=== PATIENT | female | born 1950 | race Caucasian/White ===

== ENCOUNTER → 2021-11-16 06:40 | Outpatient (CLI) | payer MEDICARE, SELFPAY ==
--- NOTE | 2021-11-16 | DI.ECHO.S_ITS ---
[facility] +---------+ : : [address] : [address] : : : : [id number] : : : : Phone: [phone]+ Echocardiogram Report + + :Name: JACE ESTRADA Study Date: 11/16/2021 Height: 65 in : :[facility] ReadingLocation: Weight: 159 lb : : Gender: Female BSA: 1.8 m2 : :: 1950 Age: 71 yrs BP: 140/88 mmHg: :Reason For Study: Hypertension : :Ordering Physician: : :Elisabeth Preciado Performed By: Junior Davis : :Referring: Elisabeth Preciado : + + Interpretation Summary The ejection fraction is estimated to be 55-60%. Diastolic parameters suggest probable normal left ventricular diastolic function and normal filling pressures. The right ventricle is normal in size and function. There is mild tricuspid regurgitation. The right ventricular systolic pressure is estimated to be at least 23 mmHg based on an estimated right atrial pressure of 3 mm Hg. Procedure: A two-dimensional transthoracic echocardiogram with color flow and Doppler was performed. The study quality was technically adequate. There is no prior echocardiogram noted for this patient. The patient was in normal sinus rhythm during the exam. Left Ventricle: The left ventricle is normal in size and wall thickness. Left ventricular systolic function is normal. The ejection fraction is estimated to be 55-60%. There are no focal wall motion abnormalities. Diastolic parameters suggest probable normal left ventricular diastolic function and normal filling pressures. Right Ventricle: The right ventricle is normal in size and function. Atria: Both atria are normal in size. The interatrial septum grossly appears intact with no obvious evidence for an atrial septal defect. Mitral Valve: The mitral valve is normal in structure and function. There is trace mitral regurgitation. Aortic Valve: The aortic valve is trileaflet. There is no aortic valve stenosis. No aortic regurgitation is present. Tricuspid Valve: The tricuspid valve is normal in structure and function. There is mild tricuspid regurgitation. The right ventricular systolic pressure is estimated to be at least 23 mmHg based on an estimated right atrial pressure of 3 mm Hg. Pulmonic Valve: The pulmonic valve is normal in structure and function. There is no pulmonic valvular regurgitation. Great Vessels: The aortic root is normal size. The dimensions of the ascending aorta are normal. The IVC is of normal diameter and collapses greater than 50% with a sniff. This suggests a low right atrial pressure of 3 mm Hg. Pericardium/ Pleura There is no pericardial effusion. There is no pleural effusion. MMode/2D Measurements & Calculations LVIDd: 4.8 cm LVOT diam: 2.0 cm LVIDs: 3.5 cm Ao root diam: 2.9 cm FS: 27.1 % asc Aorta Diam: 3.3 cm IVSd: 0.70 cm LVPWd: 0.80 cm LV monte. diameter/BSA (cm/m^2): 2.7 LV sys. diameter/BSA (cm/m^2): 2.0 LA dimension: 2.7 cm RA long axis: 4.6 cm LA A2 area: 17.3 cm2 IVC diam: 1.6 cm LA A4 area: 15.9 cm2 LA length (vol): 4.8 cm LA vol: 48.4 ml LA vol index: 27.0 ml/m2 TAPSE_phl: 1.8 cm Doppler Measurements & Calculations Ao V2 max: 128.0 cm/sec LVOT Max Stefan: 90.1 cm/sec Ao V2 mean: 97.3 cm/sec LV V1 max P.2 mmHg Ao max P.0 mmHg LV V1 VTI: 19.2 cm Ao mean P.0 mmHg CHIP(I,D): 2.1 cm2 Ao V2 VTI: 28.5 cm CHIP(V,D): 2.2 cm2 sev ratio: 0.67 CHIP indexed to BSA (cm^2/m^2): 1.2 MV E max stefan: 66.0 cm/sec TR max stefan: 224.0 cm/sec MV A max stefan: 60.8 cm/sec TR max P.1 mmHg MV E/A: 1.1 Med Peak E' Stefan: 7.5 cm/sec E/E' med: 8.9 Lat Peak E' Stefan: 10.3 cm/sec E/E' lat: 6.4 E/e' average: 7.6 MV dec time: 0.27 sec SV(LVOT): 60.3 ml AV VR_phl: 0.70 CHIP(VTI)/BSA_phl: 1.2 MV P1/2t-pr_phl: 78.0 msec Reading Physician:11:52 AM
== END ==
PROVIDERS: Referring Provider Nurse Practitioner Family; Visit Provider Nurse Practitioner Family
DX: I10 Essential (primary) hypertension (principal); I07.1 Rheumatic tricuspid insufficiency
CPT/HCPCS: 93306